=== PATIENT | male | born 1980 | race Caucasian/White ===

== ENCOUNTER → 2020-05-18 | Outpatient (CLI) | payer OTHER ==
[~2020-05-18] MED LIST: ANTIVERT 25MG25 MG PO; CARAFATE 1GM1 G PO; DEXILANT30 MG PO; FLEXERIL 1010 MG/TAB PO; KETACONAZOLE PO; KLOR-CON 1010 MEQ PO; LORTAB 7.5/5001 TAB PO; MOTRIN 200200 MG/TAB PO; NORVASC 5MG5 MG/TAB PO; PHENERGAN25 MG RC; PROTONIX 40MG T40 MG PO; REGLAN 5MG T5 MG/TAB PO; ULTRAM 50MG TAB50 MG PO; ZOFRAN ODT4 MG PO; ZOFRAN8 MG PO
== END ==
LOC: ZCOL.LAB 16:58
DX: Z20.828 Contact with and (suspected) exposure to other viral communicable diseases (principal)

== ENCOUNTER → 2022-10-19 | Outpatient (CLI) | payer OTHER | LOC: COL.RAD 08:43 | DX: R74.8 Abnormal levels of other serum enzymes (principal) ==